=== PATIENT | female | born 1950 | race Caucasian/White ===

== ENCOUNTER 2023-07-05 06:11 | Outpatient (REF) | payer MEDICARE, SELFPAY | END 2023-07-05 06:12 | disposition home or self-care (01) | LOC: HO.MMNH1L 06:11 | PROVIDERS: Visit Provider Family Medicine | DX: Z13.89 Encounter for screening for other disorder (principal) ==

== ENCOUNTER 2023-07-25 16:49 | Outpatient (REF) | payer SELFPAY ==
[2023-07-25 18:27] LABS: CDiff Gene PCR NEGATIVE (Negative)
== END 2023-07-25 16:50 | disposition home or self-care (01) ==
LOC: HO.MMNH1L 16:49
PROVIDERS: Visit Provider Family Medicine
DX: N39.0 Urinary tract infection, site not specified (principal); M62.59 Muscle wasting and atrophy, not elsewhere classified, multiple sites; L89.154 Pressure ulcer of sacral region, stage 4
CPT/HCPCS: 87493

== ENCOUNTER 2023-09-14 06:08 | Outpatient (REF) | payer MEDICARE, OTHER, SELFPAY ==
[2023-09-14 06:11] LABS: MANUAL DIFF FLAG NO
[2023-09-14 06:20] LABS: Basophils Absolute Auto 0.1 X10*3/uL (0.0-0.2); Basophils Percent Auto 0.7 % (0-2); Eosinophils Absolute Auto 0.2 X10*3/uL (0.0-0.4); Eosinophils Percent Auto 2.8 % (0-4); Hemoglobin 11.9 g/dl (12.0-16.0); Imm Gran Abs Auto 0.04 X10*3/uL (0.00-0.03); Imm Gran Pct Auto 0.5 % (0.0-0.4); Lymphocytes Absolute Auto 2.1 X10*3/uL (1.2-4.9); Lymphocytes Percent Auto 28.2 % (20-40); Mean Corpuscular HGB Conc 32.2 g/dl (31.0-35.0); Mean Corpuscular Hemoglobin 28.2 pg (27.0-33.0); Mean Corpuscular Volume 87.7 fL (80.0-98.0); Mean Platelet Volume 9.1 fL (9.4-12.3); Monocytes Absolute Auto 0.6 X10*3/uL (0.1-1.2); Monocytes Percent Auto 8.6 % (2-11); Neutrophils Absolute Auto 4.4 x10*3/uL (2.0-8.3); Neutrophils Percent Auto 59.2 % (45-73); Platelet Count 505 X10*3/uL (160-400); Red Blood Count 4.22 X10*6/uL (4.20-5.50); Red Cell Distribution Width 16.9 % (11.0-16.0); White Blood Count 7.4 X10*3/uL (4.8-10.8)
[2023-09-14 07:26] LABS: Blood Urea Nitrogen 35 mg/dL (9-16); Estimated Glomerular Filt Rate 25
[2023-09-14 07:38] LABS: Anion Gap 19 (12-20)
[2023-09-14 07:39] LABS: Calcium 10.3 mg/dL (8.4-10.2); Carbon Dioxide 20 mmol/L (22-29); Chloride 103 mmol/L (96-108)
[2023-09-14 07:40] LABS: Sodium 136 mmol/L (135-145)
[2023-09-14 08:10] LABS: Estimated Average Glucose 100 mg/dL; Hemoglobin A1c % 5.1 % (<6.0)
[2023-09-14 08:12] LABS: Glucose Random 53 mg/dL (60-115); Potassium 6.3 mmol/L (3.3-5.1)
== END 2023-09-14 06:09 | disposition home or self-care (01) ==
LOC: HO.MMNH1L 06:08
PROVIDERS: Hospitalist; Visit Provider Family Medicine
DX: L89.154 Pressure ulcer of sacral region, stage 4 (principal); G93.41 Metabolic encephalopathy
CPT/HCPCS: 36415; 80048; 83036; 85025

== ENCOUNTER 2023-09-15 05:05 | Outpatient (REF) | payer MEDICARE, OTHER, SELFPAY ==
[2023-09-15 05:07] LABS: MANUAL DIFF FLAG NO
[2023-09-15 05:14] LABS: Basophils Percent Auto 0.5 % (0-2); Eosinophils Absolute Auto 0.2 X10*3/uL (0.0-0.4); Eosinophils Percent Auto 2.6 % (0-4); Imm Gran Abs Auto 0.05 X10*3/uL (0.00-0.03); Imm Gran Pct Auto 0.6 % (0.0-0.4); Lymphocytes Absolute Auto 1.8 X10*3/uL (1.2-4.9); Lymphocytes Percent Auto 20.8 % (20-40); Mean Corpuscular HGB Conc 33.3 g/dl (31.0-35.0); Mean Corpuscular Hemoglobin 28.9 pg (27.0-33.0); Mean Corpuscular Volume 86.8 fL (80.0-98.0); Monocytes Absolute Auto 0.8 X10*3/uL (0.1-1.2); Monocytes Percent Auto 8.8 % (2-11); Neutrophils Absolute Auto 5.7 x10*3/uL (2.0-8.3); Neutrophils Percent Auto 66.7 % (45-73); Platelet Count 384 X10*3/uL (160-400); Red Cell Distribution Width 16.4 % (11.0-16.0); White Blood Count 8.5 X10*3/uL (4.8-10.8)
[2023-09-15 05:27] LABS: Alanine Aminotransferase 9 U/L (0-31); Albumin Level 3.2 g/dL (3.5-5.0); Alkaline Phosphatase 88 U/L (39-117); Anion Gap 17 (12-20); Aspartate Amino Transferase 17 U/L (5-31); Bilirubin Total 0.1 mg/dL (0.0-1.0); Blood Urea Nitrogen 36 mg/dL (9-16); Calcium 9.4 mg/dL (8.4-10.2); Carbon Dioxide 17 mmol/L (22-29); Chloride 101 mmol/L (96-108); Estimated Glomerular Filt Rate 30; Glucose Random 72 mg/dL (60-115); Potassium 4.4 mmol/L (3.3-5.1); Sodium 131 mmol/L (135-145); Total Protein 5.9 g/dL (6.5-8.0)
== END 2023-09-15 05:06 | disposition home or self-care (01) ==
LOC: HO.MMNH1L 05:05
PROVIDERS: Visit Provider Hospitalist
DX: L89.154 Pressure ulcer of sacral region, stage 4 (principal); G93.41 Metabolic encephalopathy; N17.9 Acute kidney failure, unspecified
CPT/HCPCS: 36415; 80053; 85025

== ENCOUNTER 2023-09-25 16:27 | Outpatient (REF) | payer MEDICARE, OTHER, SELFPAY ==
[2023-09-25 16:57] LABS: Alanine Aminotransferase 105 U/L (0-31); Albumin Level 3.1 g/dL (3.5-5.0); Alkaline Phosphatase 477 U/L (39-117); Anion Gap 12 (12-20); Aspartate Amino Transferase 172 U/L (5-31); Bilirubin Total 0.2 mg/dL (0.0-1.0); Blood Urea Nitrogen 15 mg/dL (9-16); Calcium 9.2 mg/dL (8.4-10.2); Carbon Dioxide 24 mmol/L (22-29); Chloride 105 mmol/L (96-108); Estimated Glomerular Filt Rate > 60; Glucose Random 151 mg/dL (60-115); Potassium 4.2 mmol/L (3.3-5.1); Sodium 137 mmol/L (135-145); Total Protein 5.8 g/dL (6.5-8.0)
== END 2023-09-25 16:28 | disposition home or self-care (01) ==
LOC: HO.MMNH1L 16:27
PROVIDERS: Visit Provider Hospitalist
DX: G93.41 Metabolic encephalopathy (principal); N18.30 Chronic kidney disease, stage 3 unspecified; N17.9 Acute kidney failure, unspecified
CPT/HCPCS: 36415; 80053

== ENCOUNTER 2024-07-09 05:36 | Outpatient (REF) | payer MEDICARE, OTHER, SELFPAY ==
--- OUTSIDE RECORDS SUMMARY | 2024-07-09 05:38 | XMS_ITS | Clinical Summary ---
Author Organization [facility] Address [address] [place] [address] Care Team Providers Care Redipper Name Role Phone Mao Arreguin III Primary Care Provider [phone] Allergies Active Allergy Reactions Criticality Noted Date Comments Penicillins Hives 05/01/2023 Medications losartan (COZAAR) 25 mg tablet Take 25 mg by mouth once a day. Active zolpidem (AMBIEN) 10 mg tablet Take 10 mg by mouth nightly as needed for sleep. Active Active Problems Problem Noted Date Diagnosed Date Weakness 05/02/2023 Social History Tobacco Use Types Packs/Day Years Used Date Smoking Tobacco: Former Cigarettes Passive Smoke Exposure: Past Tobacco Cessation:Counseling Given: Not Answered Alcohol Use Standard Drinks/Week Comments Never 0 (1 standard drink = 0.6 oz pur e alcohol) Comments No Sex and Gender Information Value Date Recorded Sex Assigned at Female 05/01/2023 8:42 PM EST Legal Sex Female 8:59 AM EDT Gender Identity Not on file Sexual Orientation Not on file Last Filed Vital Signs Vital Sign Reading Time Taken Comments Blood Pressure 111/73 05/02/2023 9:44 AM EST Pulse 99 05/02/2023 9:44 AM EST Temperature 36.7 ??C (98.1 ??F) 05/01/2023 7:38 PM ES T Respiratory Rate 18 05/02/2023 9:44 AM EST Oxygen Saturation 94% 05/02/2023 9:44 AM EST Inhaled Oxygen Concentration - - Weight 72.6 kg (160 lb) 05/01/2023 7:38 PM EST Height 160 cm (5' 3 ) 05/01/2023 7:38 PM EST Body Mass Index 28.34 05/01/2023 7:38 PM EST Plan of Treatment Health Maintenance Due Date Last Done Comments Angie 1950 Colon Cancer Screening 1950 Colonoscopy 1950 FOBT / Fit Test 1950 Hepatitis C Screening 1950 Sigmoidoscopy 1950 Medicare AWV 1951 DTaP,Tdap,and Td Vaccines (1 - Tdap) 11/17/[address] Lung Cancer Screening (Baseline) 11/17/1999 Osteoporosis Screening 11/17/1999 Pneumococcal Vaccine: 50+ Ye ars (1 of 1 - PCV) 11/17/1999 Zoster Vaccines (1 of 2) 11/17/1999 COVID-19 Vaccine (1 - 2023-2 5 season) 2023 Alcohol/Substance Use Screening 02/27/2024 Depression Screening and Follow-Up 02/27/2024 Health Care Proxy Review 02/27/2024 Social Drivers of Health Lisa ual Screening 02/27/2024 Influenza Vaccine (Season Ended) 2024 RSV Vaccine (60+ years old a nd patients) (1 - 1-dose 75+ series) 2024 Hepatitis B Vaccines Aged Out No long er eligible based on patient's age to complete this topic Insurance MEDICARE [facility] [place] [id number] Care Teams Redipper Relationship Specialty Start Date End Date Mao Arreguin III [address] [facility] [address] [place], [place] [id number] PCP - General Family Medicine 05/02/23
--- OUTSIDE RECORDS SUMMARY | 2024-07-09 05:38 | XMS_ITS | Referral Summary ---
Author Organization [facility] Address [address] [place] [address] Care Team Providers Care Gut Sorter Name Role Phone Mao Arreguin III Primary Care Provider [phone] Allergies Active Allergy Reactions Criticality Noted Date [...] 05/01/2023 7:38 PM EST Plan of Treatment Not on file Insurance MEDICARE [facility] Care Teams Gut Sorter Relationship Specialty Start Date End Date Mao Arreguin III [address] [place] [address] [address] [place], [place] [phone] PCP - General Family Medicine 05/02/23
[2024-07-09 06:42] LABS: Anion Gap 15 (12-20); Blood Urea Nitrogen 17 mg/dL (9-16); Calcium 9.2 mg/dL (8.4-10.2); Carbon Dioxide 27 mmol/L (22-29); Chloride 104 mmol/L (96-108); Estimated Glomerular Filt Rate > 60; Glucose Random 138 mg/dL (60-115); Potassium 4.6 mmol/L (3.3-5.1); Sodium 141 mmol/L (135-145)
== END 2024-07-09 05:37 | disposition home or self-care (01) ==
LOC: HO.MMNH3L 05:36
PROVIDERS: Visit Provider Student in an Organized Health Care Education/Training Program
DX: I10 Essential (primary) hypertension (principal)
CPT/HCPCS: 36415; 80048

== ENCOUNTER 2024-09-01 06:47 | Outpatient (REF) | payer MEDICARE, OTHER, SELFPAY ==
[2024-09-01 06:53] LABS: MANUAL DIFF FLAG NO
[2024-09-01 07:10] LABS: Hematocrit 38.4 % (37.0-47.0); Hemoglobin 12.9 g/dl (12.0-16.0); Imm Gran Abs Auto 0.02 X10*3/uL (0.00-0.03); Imm Gran Pct Auto 0.2 % (0.0-0.4); Lymphocytes Absolute Auto 2.8 X10*3/uL (1.2-4.9); Mean Corpuscular HGB Conc 33.6 g/dl (31.0-35.0); Mean Corpuscular Hemoglobin 30.6 pg (27.0-33.0); Mean Corpuscular Volume 91.0 fL (80.0-98.0); NRBC Abs Auto 0.000 X10*3/uL (0.0-0.012); NRBC Pct Auto 0.0 /100WBC (0.0-0.2); Platelet Count 300 X10*3/uL (160-400); Red Blood Count 4.22 X10*6/uL (4.20-5.50); White Blood Count 8.3 X10*3/uL (4.8-10.8)
[2024-09-01 07:21] LABS: B Type Natriuretic Peptide 19 pg/mL (<100)
[2024-09-01 07:25] LABS: Alanine Aminotransferase 18 U/L (0-31); Albumin Level 3.8 g/dL (3.5-5.0); Alkaline Phosphatase 110 U/L (39-117); Anion Gap 14 (12-20); Aspartate Amino Transferase 28 U/L (5-31); Blood Urea Nitrogen 20 mg/dL (9-16); Calcium 9.5 mg/dL (8.4-10.2); Carbon Dioxide 28 mmol/L (22-29); Chloride 107 mmol/L (96-108); Estimated Glomerular Filt Rate > 60; Potassium 4.6 mmol/L (3.3-5.1); Sodium 144 mmol/L (135-145); Total Protein 6.5 g/dL (6.5-8.0)
[2024-09-01 07:34] LABS: Hemoglobin A1C 155.3810 umol/L; Total Hemoglobin (HGBA1C) 3412.2374 umol/L
[2024-09-01 07:37] LABS: Thyroid Stimulating Hormone 2.07 uIU/mL (0.32-4.0)
== END 2024-09-01 06:48 | disposition home or self-care (01) ==
LOC: HO.MMNH3L 06:47
PROVIDERS: Visit Provider Student in an Organized Health Care Education/Training Program
DX: E11.22 Type 2 diabetes mellitus with diabetic chronic kidney disease (principal); I13.0 Hypertensive heart and chronic kidney disease with heart failure and stage 1 through stage 4 chronic kidney disease, or unspecified chronic kidney disease; N18.30 Chronic kidney disease, stage 3 unspecified; I50.30 Unspecified diastolic (congestive) heart failure; E11.51 Type 2 diabetes mellitus with diabetic peripheral angiopathy without gangrene
CPT/HCPCS: 36415; 80053; 83036; 83880; 84443; 85025

== ENCOUNTER 2025-02-24 15:47 | Outpatient (REF) | payer MEDICARE, OTHER, SELFPAY ==
--- OUTSIDE RECORDS SUMMARY | 2025-02-24 18:56 | XMS_ITS | Clinical Summary ---
Author Organization [facility] Address [address] [place] [address] Care Team Providers Care Core Java Software Engineer Name Role Phone Rodríguez MORALES MD, Mao Hu Primary Care Pro vider Allergies Active Allergy Reactions Criticality Noted Date Comments Penicillins Anaphylaxis High 06/05/2015 Medications modafinil (PROVIGIL) 200 MG tablet 5 03/05/2015 Active phentermine 30 MG capsule 2 05/18/2015 Active CRESTOR 10 mg tablet 5 05/24/2015 Active zolpidem (AMBIEN) 10 mg tablet 06/04/2015 Active GLUCOPHAGE 1,000 mg tablet 5 05/23/2015 Active COZAAR 50 mg tablet 5 05/31/2015 Active Social History Tobacco Use Types Packs/Day Years Used Date Smoking Tobacco: Former Comments No Sex and Gender Information Value Date Recorded Sex Assigned at Not on file Legal Sex Female 9:40 AM EDT Gender Identity Not on file Sexual Orientation Not on file Last Filed Vital Signs Vital Sign Reading Time Taken Comments Blood Pressure 122/74 06/05/2015 9:53 AM EDT Pulse 88 06/05/2015 9:53 AM EDT Temperature 36.3 C (97.3 F) 06/05/2015 9:53 AM EDT Respiratory Rate 18 06/05/2015 9:53 AM EDT Oxygen Saturation 97% 06/05/2015 9:53 AM EDT Inhaled Oxygen Concentration - - Weight 90.7 kg (200 lb) 06/05/2015 9:53 AM EDT Height 162.6 cm (5' 4 ) 06/05/2015 9:53 AM EDT Body Mass Index 34.33 06/05/2015 9:53 AM EDT Plan of Treatment Not on file Medical Devices Not on file Insurance MEDICARE [facility] Care Teams Core Java Software Engineer Relationship Specialty Start Date End Date Mao Arreguin III, MD [facility] [address] [place] [phone] PCP - General Family Medicine 06/05/15
--- OUTSIDE RECORDS SUMMARY | 2025-02-24 18:56 | XMS_ITS | Data Portability ---
Author Organization [facility], Main Office Address [address] [address] [address] [place] [address] Care Team Providers Care Stations Superintendent Name Role Phone MALACHI JIMENEZ Primary Care Provider [phone] DANNY KEVIN 1ST FLOOR OTHER [phone] Assessment Encounter Date Assessment Date Assessment LastModified by Organization Details LastModified Time 08/13/2023 08/13/2023 Labs 07/03: Na 137-K 4.6-Bun 13- Cr 0.7 - Labs 07/02: wbc 11.6-hgb 10.0-hct 32.3-plt 560 Labs 07/15: refusing blood draws. Labs 07/23: Na 136-K 4.3-Bun 13- Cr 0.7- wbc 9.3- hgb 9.7-hct 30.8-plt 470 Not available 08/13/2023 13:51:58 08/16/2023 08/16/2023 Labs 07/03: Na 137-K 4.6-Bun 13- Cr 0.7 - Labs 07/02: wbc 11.6-hgb 10.0-hct 32.3-plt 560 Labs 07/15: refusing blood draws. Labs 07/23: Na 136-K 4.3-Bun 13- Cr 0.7- wbc 9.3- hgb 9.7-hct 30.8-plt 470 Not available 08/16/2023 11:22:23 08/20/2023 08/20/2023 Labs 07/03: Na 137-K 4.6-Bun 13- Cr 0.7 - Labs 07/02: wbc 11.6-hgb 10.0-hct 32.3-plt 560 Labs 07/15: refusing blood draws. Labs 07/23: Na 136-K 4.3-Bun 13- Cr 0.7- wbc 9.3- hgb 9.7-hct 30.8-plt 470 Spent 30 reviewing records, seeing pt, consulting with staff and documenting [place] Not available 09/15/2023 18:50:16 08/28/2023 08/28/2023 Labs 07/03: Na 137-K 4.6-Bun 13- Cr 0.7 - Labs 07/02: wbc 11.6-hgb 10.0-hct 32.3-plt 560 Labs 07/15: refusing blood draws. Labs 07/23: Na 136-K 4.3-Bun 13- Cr 0.7- wbc 9.3- hgb 9.7-hct 30.8-plt 470 Not available 08/28/2023 12:55:15 09/03/2023 09/03/2023 Labs 07/03: Na 137-K 4.6-Bun 13- Cr 0.7 - Labs 07/02: wbc 11.6-hgb 10.0-hct 32.3-plt 560 Labs 07/15: refusing blood draws. Labs 07/23: Na 136-K 4.3-Bun 13- Cr 0.7- wbc 9.3- hgb 9.7-hct 30.8-plt 470 Labs 07/03: Na 137-K 4.6-Bun 13- Cr 0.7 - Labs 07/02: wbc 11.6-hgb 10.0-hct 32.3-plt 560 Labs 07/15: refusing blood draws. Labs 07/23: Na 136-K 4.3-Bun 13- Cr 0.7- wbc 9.3- hgb 9.7-hct 30.8-plt 470 Spent 30 reviewing records, seeing pt, consulting with staff and documenting [place] Not available 09/03/2023 21:37:47 Plan of Treatment Reminders Order Date Submit Date Provider Last Modified By Organization Details Last Modified Time Details Appointments None record ed. Lab None record ed. Referral None record ed. Procedures None record ed. Surgeries None record ed. Imaging None record ed. Medication Orders None record ed. Patient TargetsNo targets recorded. Patient InstructionsNo instructions recorded. Reason for Referral None Reported. Problems Name Problem SNOMED Code Status Onset Date Resolution Date Notes Provider Name and Address Organization Details Recorded Time Essential hypertensi on 56241057 Active 2022 DHEERAJ VELAZQUEZ, KWAKU [address], [address], [place], [address], [facility] 3 14:35:55 Type 2 diabetes mellitus 44183984 Active 2022 DHEERAJ VELAZQUEZ, KWAKU [address], [address], [place], [address], [facility] 3 14:36:04 Colitis 35107605 Completed 202207/06/2023 [address]RY [address], [address], [place], [address], [facility] 4 11:15:26 Major depressive disorder 247820461 Active 2022 DHEERAJ VELAZQUEZ NP [address], [address], [place], [address], [facility] 3 14:36:36 Self-negle ct 361870835 Active 2022 DHEERAJ VELAZQUEZ NP [address], [address], [place], [address], [facility] 3 14:36:46 Asthenia 56226192 Active 2022 DHEERAJ VELAZQUEZ NP [address], [address], [place], [address], [facility] 3 14:37:05 Infection by methicilli n sensitive Staphyloco ccus aureus 081751994 Completed 202207/06/[address] GUIDRY [address], [address], [place], [address], [facility] 4 11:15:26 Urinary tract infectious disease 74167355 Active 2023 [address] GUIDRY [address], [address], [place], [address], [facility] 4 11:16:44 Pressure injury 8167249306 Active 2023 [address] GUIDRY [address], [address], [place], [address], [facility] 4 11:17:17 Ulcer 029283494 Active 2023 FRANTZ GUIDRY [address] [facility], [address], [place], [address], [facility] 4 11:17:33 Insomnia 926004674 Active 2023 FRANTZ GUIDRY [address] [facility], [address], [place], [address], [facility] 4 11:23:33 Gastroesop hageal reflux disease 681688107 Active 2023 FRANTZ GUIDRY [address] [place] [address], [address], [place], [address], [facility] 4 11:26:34 Peripheral vascular disease 278187480 Active 2023 FRANTZ GUIDRY [address] [place] [address], [address], [place], [address], [facility] 4 11:39:18 Diabetic foot ulcer 379883805 Active 2023 Katt Fernando MD [address] [place] [address], [facility] [place] [address], [place], [address], [facility] 4 21:45:55 Problem Notes None recorded. Medical Equipment None Reported. Allergies Allergen ID Allergen Name Allergen Category Reaction Reaction Severity Criticality Documentation Date Start Date Code Code System Note Provider Name and Address Organization Details Recorded Time 51440 Product containin g penicilli n (product) medicatio n Not available Not available Not available 07/08/2022 78410 8001 SNOMED DHEERAJ VELAZQUEZ NP [address] [facility], [address], [place], [address], [facility] 3 14:26:05 95015 ceftriaxo ne medicatio n Not available Not available Not available 07/06/2023 2193 RxNorm FRANTZ GUIDRY [address] [facility], [address], [place], [address], [facility] 4 11:44:51 Medications Name Sig Start Date Stop Date Status Note LastModified by Organization Details LastModified Time zolpidem 5 mg tablet Take 1 tablet every day by oral route as needed. 023 active Not Available Not Available Not Avai lable oxycodone 5 mg tablet Take 1 tablet every 6 hours by oral route as needed, for pain. 024 active Not Available Not Available Not Avai lable Vitals Date Recorded Body height Body temperature Respiratory rate Heart rate Systolic And Diastolic Provider Name and Address Organization Details Last Updated DateTime 4 160.02 cm 97.4 [degF] 18 /min 92 /min 102/60 mm[Hg] FRANTZ GUIDRY [address] [facility], [address], [place], [address], [facility] 4 13:47:40 Date Recorded Body height Heart rate Respiratory rate Body temperature Oxygen saturation Systolic And Diastolic Provider Name and Address Organization Details Last Updated DateTime 4 160.02 cm 76 /min 18 /min 98 [degF] 94 % 110/62 mm[Hg] FRANTZ GUIDRY [address] [place] [address], [address], [place], [address], [facility] 4 11:21:58 Date Recorded Body height Body mass index (BMI) Body weight Heart rate Respiratory rate Body temperature Oxygen saturation Systolic And Diastolic Provider Name and Address Organization Details Last Updated DateTime 4 160.02 cm 26.7 kg/m2 11445.7 3 g 69 /min 18 /min 98 [degF] 95 % 108/76 mm[Hg] Katt Fernando MD [address] [facility], [address], [place], [address], [facility] 4 21:46:18 Date Recorded Body height Body temperature Oxygen saturation Respiratory rate Heart rate Systolic And Diastolic Provider Name and Address Organization Details Last Updated DateTime 4 160.02 cm 97.9 [degF] 93 % 18 /min 74 /min 100/58 mm[Hg] FRANTZ GUIDRY [address] [facility], [address], [place], [address], [facility] 4 12:52:55 Date Recorded Body height Body mass index (BMI) Body weight Heart rate Respiratory rate Body temperature Oxygen saturation Systolic And Diastolic Provider Name and Address Organization Details Last Updated DateTime 160.02 cm 26.5 kg/m2 40229.7 g 88 /min 16 /min 97.8 [degF] 98 % 106/69 mm[Hg] Katt Fernando MD [address] [facility], [address], [place], [address], [facility] 18:37:38 Social History Question Answer Notes LastModified by [employer] Details LastModified Time Tobacco Smoking Status Former Smoker quit 2003 Katt Fernando MD [address] [facility], [address], [place], [address], [facility] 07/09/2023 21:46:25 Do You Have An Advance Directive? Yes Information not available 07/06/2023 What Is Your Code Status? Full Code Information not available 07/06/2023 [facility] [place] Information not available 09/03/2023 Legal Guardian? No Informati on not available 07/09/2023 Do You Have A Medical Power Of Director Of Occupational Therapy? Yes Information not available 07/09/2023 What Was The Date Of Your Most Recent Tobacco Screening? 07/09/2023 Information not available 07/09/2023 Do You Have An Out Of Hospital DNR? No Information not available 07/06/2023 What Is Your Relationship Status? Of Heart Failure A Few Yrs Ago, He Smoked, Drank And At One Time Was Addicted To Oxy. Information not available 09/03/2023 How Much Tobacco Do You Smoke? No Information not available 07/09/2023 Has Tobacco Cessation Counseling Been Provided? No N/a As Pt No Longer Smokes Information not available 07/09/2023 Sex: Unknown Functional Status Question Answer Note LastModified by [employer] Details LastModified Time Do you use any illicit or recreational drugs? No Information not available 07/09/2023 What is your level of alcohol consumption? None [email or web address] Information not available 07/08/2022 Mental Status None recorded. Family History Nothing Reported Notes:mother-dementia Medical History No medical history recorded. Gynecological HistoryNo gynecological history recorded. Obstetrics History GPAL:G 0 P 0 0 0 0 Past Encounters Encounter ID Performer Location Encounter Start Date Encounter Closed Date Diagnosis/Indication Diagnosis SNOMED-CT Code Diagnosis ICD10 Code Diagnosis IMO Codes Diagnosis Note [id number] DHEERAJ VELAZQUEZ NP [facility] [address] 07/08/2022 12:41:08 07/10/2022 15:17:56 Colitis 03088372 K52.9 protonix 40mg bidthiamin e 100 mg dailymvi dailymiral ax prn dailycolac e/senna bid prn Self-neglect 501326471 R 46.89 SW consultpsy ch consult Essential hypertension 44192682 I10 losartan 50mg daily Major depr essive disorder 433762469 F32.9 no medspsych consult Type 2 mary betes mellitus 77357912 E11.9 lispro sliding scale ac/hsglarg ine 28 units breakfastm onitor glucose Asthenia 02576256 R53.1 PT OT eval and treatfall precaution sfrequent safety checks [id number] Desiree Jo MD [address] [address] 07/12/2022 05:53:35 07/16/2022 08:38:59 Asthenia 81061051 R53.1 PT/OTwill monitor Essential hypertension 03281458 I10 losartan 50 mg dailywill monitor Type 2 mary betes mellitus 71486498 E11.9 Lantus 28U dailyLispr o per sliding scalewill monitor History of osteomyelitis 673905963 Z87.39 history MSSA bacteremia and right great toe osteomyeli tis:comple te Kefzol 06/28/22dox ycycline 100 mg bid through 07/30/22fu I.D.will monitor [id number] FRANTZ Fernando [address] [address] 07/18/2022 09:14:57 07/27/2022 15:07:17 Colitis 14143664 K52.9 stableprot vanessa 40mg bidthiamin e 100 mg dailymvi dailymiral ax prn dailycolac e/senna bid prn Self-neglect 936594652 R 46.89 SW consultpsy ch consult Essential hypertension 60699778 I10 bp normallosa rtan 50mg qdmonitor bp and adjust med prn Major depr essive disorder 118130394 F32.9 pt had been started on lexapro and depakote at previous hospital stay, not on either at this timepsych consult Type 2 mary betes mellitus 05282031 E11.9 BS 100-200sli spro sliding scale ac/hsglarg ine 28 units q ammonitor BS and adjust insulin prn Asthenia 01451318 R53.1 continue PT OTfall precaution sfrequent safety checks History of osteomyelitis 773535590 Z87.39 history MSSA bacteremia and right great toe osteomyeli tis:comple jensen Kefzol 06/28/22dox ycycline 100 mg bid til 07/28/22prob iotic bid til 23f/u I.Dmonitor right great toeencoura ged pt to stay till her house is fixed up so she can return there [id number] FRANTZ Fernando [address] [address] 07/25/2022 09:31:26 07/28/2022 10:53:58 History of osteomyelitis 785494638 Z87.39 history MSSA bacteremia and right great toe osteomyeli tis:comple jensen Kefzol 06/28/22dox ycycline 100 mg bid til 07/28/22prob iotic bid til 08/02/22f/u I.Dmonitor right great toe Colitis 09491205 K52.9 stableprot vanessa 40mg bidthiamin e 100 mg dailymvi dailymiral ax prn dailycolac e/senna bid prn Essential hypertension 95061564 I10 losartan 50mg qdmonitor bp and adjust med prn Major depr essive disorder 973007633 F32.9 mood stablept had been started on lexapro and depakote at previous hospital stay, not on either at this timepsych consult Type 2 mary betes mellitus 68520514 E11.9 BS 100s with occ 200slispro sliding scale ac/hsglarg ine 28 units q ammonitor BS and adjust insulin prn [id number] TIFFANIE FRANCO, PRODUCTION TECHNICIAN [facility] [address] 07/27/2022 11:33:08 08/18/2022 11:31:19 History of osteomyelitis 890628913 Z87.39 history MSSA bacteremia and right great toe osteomyeli tis:comple jensen Kefzol 06/28/22dox ycycline 100 mg bid til 07/28/22prob iotic bid til 08/02/22f/u I.Dmonitor right great toe Colitis 19729200 K52.9 stableprot vanessa 40mg bidthiamin e 100 mg dailymvi dailymiral ax prn dailycolac e/senna bid prn Essential hypertension 92311497 I10 BP 140/70losa rtan 50mg qdmonitor bp and adjust med prn Major depr essive disorder 033420889 F32.9 Not currently on any mood stabilizer sno behavior concernsmo nitor for mood and behavorial changespsy ch consult as needed Type 2 mary betes mellitus 49138594 E11.9 07/26 305lispro sliding scale ac/hsglarg ine 28 units q ammonitor BS and adjust insulin prnmonitor for sx of hypo/hyper glycemia. [id number] FRANTZ Fernando [facility] [address] 08/01/2022 10:14:59 08/04/2022 14:14:07 History of osteomyelitis 579113649 Z87.39 history MSSA bacteremia and right great toe osteomyeli tis:comple jensen Kefzol 06/28/22 and doxycyclin e on 07/28/22prob iotic bid til 08/02/22f/u I.Dmonitor right great toe Colitis 92360753 K52.9 stable, no c/o sxsprotoni x 40mg qd (was on bid till 07/29/22)thi amine 100 mg qdmvi qdcolace/s karena bid prnmonitor for sxs Essential hypertension 82181404 I10 bp normallosa rtan 50mg qdmonitor bp and adjust med prn Major depr essive disorder 000647493 F32.9 mood stableno treatmentp sych consult Type 2 mary betes mellitus 62718521 E11.9 BS 100s -200spt doesn't want to change glargine doselispro sliding scale ac/hsglarg ine 28 units q ammonitor BS and adjust insulin prn Primary insomnia 7020501 F51.01 trial ambien 5 mg 1 qhs prn insomniamo nitor for effect Osteoarthritis 025901731 M19.90 ibuprofen 400 mg q 6 hrs prn painmonito r for effect [id number] FRANTZ GUIDRY [facility] [address] [address] 08/02/2022 12:36:34 08/04/2022 15:30:14 Floaters in visual field 605474988 H43.399 hx of floater, has been taking leutin periodical ly when floater appear which works 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 [id number] FRANTZ GUIDRY [facility] [address] [address] 08/07/2022 13:53:28 08/10/2022 16:12:09 History of osteomyelitis 259974644 Z87.39 history MSSA bacteremia and right great toe osteomyeli tis:comple jensen Kefzol 06/28/22 and doxycyclin e on 07/28/22prob iotic bid til 08/02/22f/u I.Dmonitor right great toe Colitis 91912747 K52.9 08/07: no reported sxstable, no c/o sxsprotoni x 40mg qd (was on bid till 07/29/22)thi amine 100 mg qdmvi qdcolace/s karena bid prnmonitor for sxs Essential hypertension 51326284 I10 122/76losa rtan 50mg qdmonitor for clinical sx changesmon itor bp and adjust med prn Major depr essive disorder 431693885 F32.9 no currently taking medication smonitor for mood and behaviroal changespsy ch consult Type 2 mary betes mellitus 70542981 E11.9 BS 100s -200spt doesn't want to change glargine doselispro sliding scale ac/hsglarg ine 28 units q ammonitor BS and adjust insulin prn Primary insomnia 8757726 F51.01 sleeping wellambien 5 mg 1 qhs prn insomnia until 08/15 and re eval Osteoarthritis 616202225 M19.90 ibuprofen 400 mg q 6 hrs prn painmonito r for effect Floaters i n visual field 589694026 H43.399 no reported sx todayhx of floater, has been taking leutin periodical ly when floater appear which works 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 [id number] CASEY SEYMOUR NP [facility] [address] [place] [address] 08/09/2022 15:36:34 08/11/2022 08:59:37 History of osteomyelitis 371654826 Z87.39 history MSSA bacteremia and right great toe osteomyeli tis:comple jensen Kefzol 06/28/22 and doxycyclin e on 07/28/22prob iotic bid til 08/02/22f/u I.D - sched. for 07/18 - unsure if pt. went to this appt. Will request paperwork, if did not go will reschedule appt.monit or right great toe Colitis 62702196 K52.9 No GI issuesstab le, no c/o sxsprotoni x now 40mg qd, reduced from bid 07/29 - melissa. dose reduction well so far.colace /senna bid prnmonitor for sxs Essential hypertension 28617577 I10 VSScontinu e losartan 50mg qdmonitor for clinical sx changesmon itor bp and adjust med prn Major depr essive disorder 759396893 F32.9 no currently taking medication smonitor for mood and behaviroal changespsy ch consult Type 2 mary betes mellitus 18183027 E11.9 BS 100s -200spt doesn't want to change glargine dose - continue 28 units q amlispro sliding scale ac/hsmonit or BS and adjust insulin prn Primary insomnia 5224045 F51.01 sleeping wellambien 5 mg 1 qhs prn insomnia until 08/15 and re eval Osteoarthritis 594172415 M19.90 ibuprofen 400 mg q 6 hrs prn painmonito r for effect Floaters i n visual field 460713530 H43.399 no reported sx todayhx of floaters, has been taking leutin periodical ly when floater appear which works for her - ordered daily for 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 [id number] CASEY SEYMOUR NP [address] [address] 08/14/2022 14:18:48 08/16/2022 08:16:11 History of osteomyelitis 698728588 Z87.39 history MSSA bacteremia and right great toe osteomyeli tis:comple jensen Kefzol 06/28/22 and doxycyclin e on 07/28/22prob iotic bid til 08/02/22f/u I.D - sched. for 07/18 - unsure if pt. went to this appt. Requested paperwork, if did not go will reschedule appt.monit or right great toe Colitis 22528296 K52.9 No GI issuesstab le, no c/o sxsprotoni x now 40mg qd, reduced from bid 07/29 - melissa. dose reduction well so far.colace /senna bid prnmonitor for sxs Essential hypertension 31758312 I10 VSScontinu e losartan 50mg qdmonitor for clinical sx changesmon itor bp and adjust med prn Major depr essive disorder 963006004 F32.9 not currently taking medication smonitor for mood and behavioral changespsy ch consult Type 2 mary betes mellitus 44136572 E11.9 BS 100s -200spt doesn't want to change glargine dose - continue 28 units q amlispro sliding scale ac/hsmonit or BS and adjust insulin prn Primary insomnia 8586977 F51.01 sleeping wellambien 5 mg 1 qhs prn insomnia - will continue until discharge home. 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 [id number] CASEY SEYMOUR NP [facility] [address] 08/17/2022 11:49:50 08/23/2022 08:42:03 History of osteomyelitis 852904675 Z87.39 history MSSA bacteremia and right great toe osteomyeli tis:comple jensen Kefzol 06/28/22 and doxycyclin e on 07/28/22prob iotic bid til 08/02/22f/u I.D - sched. for 07/18 - unsure if pt. went to this appt. Requested paperwork, if did not go will need to reschedule appt.monit or right great toe as outpt. Colitis 26419192 K52.9 No GI issuesstab le, no c/o sxsprotoni x now 40mg qd, reduced from bid 07/29 - melissa. dose reduction well so far.colace /senna bid prnmonitor for sxs Essential hypertension 56507532 I10 VSScontinu e losartan 50mg qdmonitor for clinical sx changesmon itor bp and adjust med prn Major depr essive disorder 284990608 F32.9 not currently taking medication smonitor for mood and behavioral changespsy ch consult Type 2 mary betes mellitus 60942857 E11.9 BS 100s -200spt doesn't want to change glargine dose - continue 28 units q amlispro sliding scale ac/hsmonit or BS and adjust insulin prn Primary insomnia 0273036 F51.01 sleeping wellambien 5 mg 1 qhs prn insomnia - stopping upon d/c home. 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 [id number] FRANTZ GUIDRY [address] [place] [address] rd LAYA GARCIA [address] 07/05/2023 09:49:16 07/09/2023 14:57:05 Pressure injury 1675202799 L89.90 decubitus ulcer on sacrum unstageabl eContinue on Bactrim which was restarted on 06/30 and should be continued until 07/05contin ue oxycodone 5 mg Q6 prnWound Site: sacrum wet a Kerlix roll and pack into the cavity: the wound travels upwards please ensure the cavity is packed every 12 hours Yeslidocai ne 2% gel to coccyx daily except sun and sunday. Type 2 mary betes mellitus 55007965 E11.9 continue:l antus 15 units qdlispro SSC TIDmonitor BS TID and HS and adjust insulin prn Essential hypertension 56969637 I10 continue:l osartan 50mg qdmonitor for clinical sx changesmon itor bp and adjust med prn Insomnia 492429857 G47.0 0 continue 3 mg daily at hs Gastroesop hageal reflux disease 513537300 K21.9 continue omeprazole 20 mg dailyzofra n 4mg daily prn Q4 Self-neglect 118167108 R 46.89 on 05/02 after being found awake, alert on the floor covered in urine and feces by animal control while there were trying to return her cat. patient very deconditio elian wanting to be discharge to homePT/OT eval and txHx of self neglect.ps ych eval and tx Urinary tr act infectious disease 15222300 N39.0 UTI vs bacteriuri amonitor for urinary sx Ulcer 725204436 L98.9 hx of PVDuncontr olled diabetesch ronic right great toe. [id number] Katt Fernando MD [address] [address] 07/09/2023 13:50:58 07/11/2023 10:09:59 Pressure injury 4978926469 L89.150 Descriptio n of wound per nursing: s uperior wound 2.2x2 (presents with slough, surroundin g wound clustered measuremen t 4x3cm) tunnels into the inferior larger stg 4 wound. noted intact skin in between the two wounds. larger wound measuring 9.5x7x5; underminin g from 11 o'clock (2 cm), 12 o'clock (5cm), 1 o'clock (6cm), in between 1 and 3 o'clock there is a noted 2 cm internal separate tunnel, 3 o'clock (10cm), in between 3 and 6 o'clock there is a noted 2cm tunnel, 4 o'clock (10cm), 5 o'clock (7-8cm), 6 o'clock (4cm),betw een 6 and 7 o'clock (1.5cm), 7 o'clock (0.5cm)dep th of the wound varies; on the right aspect of the wound ; depth reaches 6.25cm. on the left aspect of the wound; depth reaches 8cm. Compl eted Bactrim DS BID on 07/05Contin ue oxycodone 5 mg q 6 hrs prn and APAP 650 mg q 4 hrs prn.Local wound care as ordered, to be seen by wound care MD tomorrow. Type 2 mary betes mellitus 77376965 E11.9 Sugars pretty good since here, one high reading.Hg A1C was 8.9 in ont inue metformin 1000 mg BID, lantus 15U qd, and SSI.Finger sticks being checked BID, will change to TID.Adjust meds prn. Essential hypertension 60364755 I10 BP running low since here.For now will continue losartan 50 mg qdConsider lowering dose if BP remains low. Insomnia 043332997 G47.0 0 Continue melatonin 3 mg qhsMonitor sleep patterns. Gastroesop hageal reflux disease 259367131 K21.9 Continue omeprazole 20 mg qd and zofran 4 mg q 4 hrs prnMonitor GI sxs. Self-neglect 347309690 R 46.89 Apparently with poor self care at home, Urine and feces found all over home.Needs elder protective involved at time of d/cPsych consult Urinary tr act infectious disease 89559663 N30.80 50-100,000 e. coli on last urine cx.Covered by Bactrim which she was on for ulcers.Mon itor for sxs. Ulcer 017753258 L98.9 Chronic right great toe.Contin ue local care as ordered.Wo und care to see her in AM. Asthenia [id number] R53.1 Very deconditio elian.Needs PT/OT for strengthen ing, balance, gait training, safety and function.C ontinue fall precaution s.Monitor for safety. History of osteomyelitis 718570932 Z87.39 Hx of in 2022No evidence on this admission. Monitor Diabetic foot ulcer [id number] 97071 E13.621 Chronic right great toe.Comple jensen Bactrim DS BID on 07/05Contin ue oxycodone 5 mg q 6 hrs prn and APAP 650 mg q 4 hrs prn.Local wound care as ordered, to be seen by wound care MD tomorrow. [id number] FRANTZ GUIDRY [address] [address] 07/12/2023 17:02:21 07/16/2023 13:06:51 Pressure injury [id number] L89.90 decubitus ulcer on sacrum unstageabl econtinue oxycodone 5 mg Q6 prn5/14: SACRUM : cleanse with NS, pack with rope Alginate , apply gauze in the wound cavity, apply superabsor bent coccyx boarder foam dressing BID and PRNlidocai ne 2% gel to coccyx daily except sun and sunday. Type 2 mary betes mellitus 16620449 E11.9 mainly under 200continu e:lantus 15 units qdlispro SSC TIDmonitor BS TID and HS and adjust insulin prn Essential hypertension 73844762 I10 continue:l osartan 50mg qdmonitor for clinical sx changesmon itor bp and adjust med prn [id number] FRANTZ GUIDRY [address] [address] 07/17/2023 10:38:34 07/19/2023 16:10:08 Pressure injury [id number] L89.90 decubitus ulcer on sacrum unstageabl econtinue oxycodone 5 mg Q6 prn5/14: SACRUM : cleanse with NS, pack with rope Alginate , apply gauze in the wound cavity, apply superabsor bent coccyx boarder foam dressing BID and PRNlidocai ne 2% gel to coccyx daily except sun and sunday. Type 2 mary betes mellitus 90941127 E11.9 mainly under 200continu e:lantus 15 units qdlispro SSC TIDmonitor BS TID and HS and adjust insulin prn Essential hypertension 11304099 I10 continue:l osartan 50mg qdmonitor for clinical sx changesmon itor bp and adjust med prn Major depr essive disorder 004678495 F32.9 see hpinoted with agitation and anxietywit h start trazodone 12.5 mg Q8 prn , nursing encouraged to utilized and document effects. [id number] FRANTZ GUIDRY [address] [address] 07/19/2023 09:57:12 07/31/2023 10:45:17 Pressure injury 3361200033 L89.90 decubitus ulcer on sacrum unstageabl econtinue oxycodone 5 mg Q6 prn5/14: SACRUM : cleanse with NS, pack with rope Alginate , apply gauze in the wound cavity, apply superabsor bent coccyx boarder foam dressing BID and PRNlidocai ne 2% gel to coccyx daily except sun and sunday. Type 2 mary betes mellitus 28425682 E11.9 mainly under 200continu e:lantus 15 units qdlispro SSC TIDmonitor BS TID and HS and adjust insulin prn Essential hypertension 21813470 I10 continue:l osartan 50mg qdmonitor for clinical sx changesmon itor bp and adjust med prn Major depr essive disorder 631688640 F32.9 see hpinoted with agitation and anxietywit h start trazodone 12.5 mg Q8 prn , nursing encouraged to utilized and document effects. [id number] FRANTZ GUIDRY [address] [address] 07/25/2023 15:29:55 07/31/2023 11:48:59 Pressure injury 0718064883 L89.90 decubitus ulcer on sacrum unstageabl econtinue oxycodone 5 mg Q6 prn5/14: SACRUM : cleanse with NS, pack with rope Alginate , apply gauze in the wound cavity, apply superabsor bent coccyx boarder foam dressing BID and PRNlidocai ne 2% gel to coccyx daily except sun and sunday. Type 2 mary betes mellitus 01203383 E11.9 mainly under 200continu e:lantus 15 units qdlispro SSC TIDmonitor BS TID and HS and adjust insulin prn Essential hypertension 22343401 I10 continue:l osartan 50mg qdmonitor for clinical sx changesmon itor bp and adjust med prn Major depr essive disorder 293052380 F32.9 see hpinoted with agitation and anxietywit h start trazodone 12.5 mg Q8 prn , nursing encouraged to utilized and document effects. Delusion 4962381 F22 see hpiorder was placed for patient to be seen by psych slum score 22 - eval completed by Michael invoke- form sent to office and signed and returned via faxed.psyc h eval was ordered not sure why she was not seen, she was registered will [id number] FRANTZ GUIDRY KEVIN [address] [place] [address] [place] [address] 07/27/2023 10:19:26 07/31/2023 12:30:44 Pressure injury [id number] L89.90 decubitus ulcer on sacrum unstageabl eSACRUM : cleanse with NS, pack with rope Alginate , apply gauze in the wound cavity, apply superabsor bent coccyx boarder foam dressing BID and PRNlidocai ne 2% gel to coccyx daily except sun and sunday.con tinue oxycodone 5 mg Q6 prn Type 2 mary betes mellitus 79852496 E11.9 mainly under 200continu e:lantus 15 units qdlispro SSC TIDmonitor BS TID and HS and adjust insulin prn Essential hypertension 71933476 I10 continue:l osartan 50mg qdmonitor for clinical sx changesmon itor bp and adjust med prn Major depr essive disorder 815923343 F32.9 Trazodone ordered, nursing used 3 timesnursi ng encouraged to use and document behaviors, pt has been invoked.tr azodone 12.5 mg BID Delusion 2818414 F22 order was placed for patient to be seen by psych slum score 22 - eval completed by Michael invoke- form sent to office and signed and returned via faxed.psyc h eval was ordered not sure why she was not seen, she was registered will HDtrazodon e prn ordered, will schedule to see if behaviors improve. [id number] FRANTZ GUIDRY [address] [place] [address] 07/30/2023 12:35:12 08/06/2023 15:33:13 Pressure injury 9240639399 L89.90 decubitus ulcer on sacrum unstageabl eSACRUM : cleanse with NS, pack with rope Alginate , apply gauze in the wound cavity, apply superabsor bent coccyx boarder foam dressing BID and PRNlidocai ne 2% gel to coccyx daily except sun and sunday.con tinue oxycodone 5 mg Q6 prn Type 2 mary betes mellitus 80408841 E11.9 continue:l antus 15 units qdlispro SSC TIDmonitor BS TID and HS and adjust insulin prn Essential hypertension 04155904 I10 BP has been stable.con tinue:losa rtan 50mg qdmonitor for clinical sx changesmon itor bp and adjust med prn Major depr essive disorder 883442304 F32.9 Trazodone ordered, nursing used 3 timesnursi ng encouraged to use and document behaviors, pt has been invoked.tr azodone 12.5 mg BID - . nursing reports disruptive behaviors. forgot to schedule medication . will start trazodone 25 mg schedule for this evening Delusion [id number] F22 order was placed for patient to be seen by psych marbellaum score 22 - eval completed by Michael invoke- form sent to office and signed and returned via faxed.psyc h eval was ordered not sure why she was not seen, she was registered will HDtrazodon e prn ordered, will schedule trazodone 25 mg at hs to see if behaviors improve. [id number] FRANTZ GUIDRY DANNY BROWN [address] [place] [address] [place] [address] 08/01/2023 09:42:38 08/06/2023 16:24:53 Pressure injury 5575834562 L89.90 07/30 seen by wound MD, continue with current tx ordered. decubitus ulcer on sacrum unstageabl eSACRUM : cleanse with NS, pack with rope Alginate , apply gauze in the wound cavity, apply superabsor bent coccyx boarder foam dressing BID and PRNlidocai ne 2% gel to coccyx daily except sat and sunday.con tinue oxycodone 5 mg Q6 prn Type 2 mary betes mellitus 13402452 E11.9 Her BGL have all been mainly 150s.natividad nue:lantus 15 units qdlispro SSC TIDmonitor BS TID and HS and adjust insulin prn Essential hypertension 42414073 I10 Her BP has been stable SBP high 90-110scon tinue:losa rtan 50mg qdmonitor for clinical sx changesmon itor bp and adjust med prn Major depr essive disorder 898274388 F32.9 nursing reports she continues to have agitation with disruptive behaviors, trazodone was ordered for Hs and has been effective. will continue trazodone 25 mg schedule for this evening Delusion [id number] F22 order was placed for patient to be seen by psych - she has not yet been evaluated, nursing asked to ensure HD is updated that she needs to be seen. she in invoked. slum score 22continue trazodone as ordered, Loose stool 726685643 R1 9.5 reportedly having loose stool on 07/25- nursing concerns for cdiff d/t abx usesample negative for cdiffthere has been no reports loose stools since 07/26/23. [id number] FRANTZ GUIDRY [address] [place] [address] 08/06/2023 09:01:31 08/13/2023 13:28:46 Pressure injury 4896311563 L89.90 followed by wound, no new orders, nursing reports wound is w/o s/sx of infection. decubitus ulcer on sacrum unstageabl eSACRUM : cleanse with NS, pack with rope Alginate , apply gauze in the wound cavity, apply superabsor bent coccyx boarder foam dressing BID and PRNlidocai ne 2% gel to coccyx daily except sat and sunday.con tinue oxycodone 5 mg Q6 prn Type 2 mary betes mellitus 51119825 E11.9 lantus 15 units qdlispro SSC TIDmonitor BS TID and HS and adjust insulin prn Essential hypertension 90930760 I10 Her BP has been stable SBP high 90-110scon tinue:losa rtan 50mg qdmonitor for clinical sx changesmon itor bp and adjust med prn Major depr essive disorder 556963443 F32.9 nursing reports that her behaviors and mood has improved but she does continue to have outburst.c ontinue trazodone 25 mg schedule for this eveningsta rt trazodone 25 mg QD and reval in 1 week Delusion [id number] F22 invokedcon tinue trazodone [id number] FRANTZ GUIDRY [address] [address] 08/09/2023 11:10:30 08/13/2023 13:49:17 Pressure injury 8606684895 L89.90 followed by wound, no new orders, nursing reports wound is w/o s/sx of infection. decubitus ulcer on sacrum unstageabl eSACRUM : cleanse with NS, pack with rope Alginate , apply gauze in the wound cavity, apply superabsor bent coccyx boarder foam dressing BID and PRNlidocai ne 2% gel to coccyx daily except sun and sunday.con tinue oxycodone 5 mg Q6 prn Type 2 mary betes mellitus 38870835 E11.9 lantus 15 units qdlispro SSC TIDmonitor BS TID and HS and adjust insulin prn Essential hypertension 73791342 I10 continue:l osartan 50mg qdmonitor for clinical sx changesmon itor bp and adjust med prn Major depr essive disorder 564323298 F32.9 continue trazodone 25 mg schedule for this eveningsta rt trazodone 25 mg QD and reval in 1 week Delusion F22 invokedcon tinue trazodone as above. [id number] FRANTZ GUIDRY [address] [address] 08/13/2023 11:46:24 08/15/2023 16:47:43 Pressure injury 3797912128 L89.90 followed by wound, no new orders, nursing reports wound is w/o s/sx of infection, getting smaller, min to moderate drainage.d ecubitus ulcer on sacrum unstageabl eSACRUM : cleanse with NS, pack with rope Alginate , apply gauze in the wound cavity, apply superabsor bent coccyx boarder foam dressing BID and PRNlidocai ne 2% gel to coccyx daily except sat and sunday.con tinue oxycodone 5 mg Q6 prn Type 2 mary betes mellitus 63320615 E11.9 lantus 15 units qdlispro SSC TIDmonitor BS TID and HS and adjust insulin prn Essential hypertension 99240737 I10 continue:l osartan 50mg qdmonitor for clinical sx changesmon itor bp and adjust med prn Major depr essive disorder 518522745 F32.9 continue trazodone 25 mg schedule for this eveningcon tinue trazodone 25 mg QD it seems to be effective per nursing decrease behaviors, Delusion 7310680 F22 invokedcon tinue trazodone as above. [id number] FRANTZ GUIDRY [address] [address] 08/16/2023 09:08:44 08/22/2023 10:40:33 Pressure injury 5458908811 L89.90 continue wound tx as ordered.de cubitus ulcer on sacrum unstageabl eSACRUM : cleanse with NS, pack with rope Alginate , apply gauze in the wound cavity, apply superabsor bent coccyx boarder foam dressing BID and PRNlidocai ne 2% gel to coccyx daily except sun and sunday.con tinue oxycodone 5 mg Q6 prn Type 2 mary betes mellitus 25795908 E11.9 bgl are stable under 150'slantu s 15 units qdlispro SSC TIDmonitor BS TID and HS and adjust insulin prn Essential hypertension 16869771 I10 continue:l osartan 50mg qdmonitor for clinical sx changesmon itor bp and adjust med prn Major depr essive disorder 695699664 F32.9 continue trazodone 25 mg schedule for this eveningcon tinue trazodone 25 mg QD it seems to be effective per nursing decrease behaviors, Delusion 0581096 F22 invokedcon tinue trazodone as above. [id number] [facility]att [facility] [address] [place] [phone] 08/20/2023 16:08:21 09/18/2023 07:26:47 Pressure injury 9989418406 L89.150 Continue local care as ordered and pain control with lidocaine 2% gel to coccyx daily except sun and sunday and oxycodone 5 mg q 6 hrs prn.Follow ed by wound care.Monit or for healing. Type 2 mary betes mellitus 16452271 E11.9 In good control the last few wks.Contin ue lantus 15 units qd and SSIMonitor fingerstic ks TID and HgA1C q 3 months. Essential hypertension 57450155 I10 Remains in good control.Co ntinue losartan 50 mg qdMonitor BP and labs. Major depr essive disorder 960109924 F32.89 continue trazodone 25 mg schedule for this eveningcon tinue trazodone 25 mg QD it seems to be effective per nursing decrease behaviors, Delusion 7445328 F22 Variably oriented and very confused.S cored on SLUMsConti nue supportive care, expect decline.HC P invokedMon itor mood and behaviors. Psych consult for further advice. [id number] FRANTZ GUIDRY [facility] [address] [place] [address] 08/28/2023 11:24:50 09/18/2023 07:44:16 Pressure injury 8007867255 L89.90 continue wound tx as ordered.de cubitus ulcer on sacrum unstageabl eSACRUM : cleanse with NS, pack with rope Alginate , apply gauze in the wound cavity, apply superabsor bent coccyx boarder foam dressing BID and PRNlidocai ne 2% gel to coccyx daily except sun and sunday.con tinue oxycodone 5 mg Q6 prn Type 2 mary betes mellitus 75004936 E11.9 lantus 15 units qdlispro SSC TIDmonitor BS TID and HS and adjust insulin prn Essential hypertension 65347618 I10 continue:l osartan 50mg qdmonitor for clinical sx changesmon itor bp and adjust med prn Major depr essive disorder 854697400 F32.9 continue trazodone 25 mg BIDstart duloxetine 20 mg daily, for 7 days then increase to 20 mg bid; diagnosis depression will check labs as recommende d thyroid labs, B12 and vitamin D levels Delusion 9946358 F2 invoked [id number] Katt Fernando MD [address] [place] [address] 09/03/2023 18:29:05 09/18/2023 08:04:07 Diabetic foot ulcer 907190975 E13.621 Chronic right great toe.Comple jensen Bactrim DS BID on 5/10Contin ue oxycodone 5 mg q 6 hrs prn and APAP 650 mg q 4 hrs prn.Contin ue local wound care as ordered.Wo und care MD follows. Pressure injury 68786958 07 L89.150 Continues to improve.Co mpleted Bactrim DS BID on 5/10Contin ue oxycodone 5 mg q 6 hrs prn and APAP 650 mg q 4 hrs prn.Local wound care as ordered.Wo und care MD follows. Asthenia 38924701 R53.1 Continues to be deconditio elian.Needs PT/OT for strengthen ing, balance, gait training, safety and function, but refuses.Co ntinue fall precaution s.Monitor for safety. Type 2 mary betes mellitus 60054150 E11.9 Sugars in excellent control over past month.HgA1 C was 8.9 in ont inue metformin 1000 mg BID, lantus 15U qd, and SSI.Monito r fingerstic ks TID and HgA1C q 3 months.Adj ust meds prn. Essential hypertension 00854260 I10 BP still running on the low side, but no sxs.Contin ue losartan 50 mg qdConsider lowering dose if BP remains low. Insomnia 923711975 G47.0 0 Continue melatonin 3 mg qhsMonitor sleep patterns. Gastroesop hageal reflux disease 560533908 K21.9 Continue omeprazole 20 mg qd and zofran 4 mg q 4 hrs prnMonitor GI sxs. Self-neglect 340781012 R 46.89 With poor self care at home, Urine and feces found all over home.Elder protective is involved.U nclear what jail plan is.Psych following. Urinary tr act infectious disease 16072125 N30.80 ResolvedMo nitor for recurrent sxs. History of osteomyelitis 613279956 Z87.39 Hx of in 2022No evidence on this admission. Monitor Major depr essive disorder 444915394 F32.89 Mood ok today.Cont inue trazodone 25 mg BID and duloxetine 20 mg qd until 09/04 then increase to 20 mg BID.Monito r thyroid labs, B12 and vitamin D levels Delusion 0499606 F22 Remains confused and with delusions. Unclear if psych dx or dementia.C ontinue supportive care.HCP invokedMon itor mood and behaviors. Psych follows. Health Concerns Section Related Observation LastModified by Organization Detai ls LastModified Time None Recorded Concern Status LastModified by Organization Details LastModified Time None Recorded Advance Directives Directive Y: Payers Insurance Date Sequence Insurance Name Policy Number Policy Vogel Covered Member ID Vogel Member ID Guarantor Name 09/18/2023 2 [facility] [id number] 1 Kasey Wright [id number] Kasey Wright 08/28/2023 1 [place]IC[place]: [employer] Kasey Wright [id number] Kasey Wright Notes Date Note Type Note Provider Name and Address Organization Details Recorded Time 08/13/2023 text/html ROS as noted in the HPI This is a 72-year-old female with history of depression, prior self-neglect, type II DM, CKD stage III. Patient admitted to for rehab after acute care stay for management of ? of Sepsis, decubitus ulcers,Toe wound and UTI. Patient is seen today for acute rounding visit.nursing reports she refused OOB for 1 week but tells me that she gets up by herself daily. There is improvement with behaviors. FRANTZ GUIDRY [address] [facility], [address], [place], [address], [facility] 08/13/2023 13:52:24 08/16/2023 text/html ROS as noted in the HPI This is a 72-year-old female with history of depression, prior self-neglect, type II DM, CKD stage III. Patient admitted to for rehab after acute care stay for management of ? of Sepsis, decubitus ulcers,Toe wound and UTI. Patient is seen today for acute rounding visit. FRANTZ GUIDRY [address] , [address], [place], [address], [place] [facility] 08/16/2023 11:24:13 08/20/2023 text/html I am seeing this 72 yo woman for an acute visit to f/u on ulcers DM and HTN.She has been here since 07/03 and has been d/c'd from rehab services.She continues to have a large sacral ulcer and is followed by wound care. She has a hx of self neglect, but is still her own person, CONSUMER STUDIES PROFESSOR note says she's invoked, but I don't see that in the record. Tonight she is asleep, but wakes easily and tells me she's fine. She tells me her butt is much better, but her arms hurt.She tells me she plans to go home and that she lives with her parents, that her mom is 91 yo.Her PMH includes HTN, AODM, GERD, CKD stage 3, self neglect, CKD stage 2, UTIs, CHF pEF, depression, sacral ulcer, and hx of diabetic foot ulcer with osteomyelitis. Katt Fernando MD [address] [facility], [facility], [place], [address], [facility] 09/15/2023 18:50:20 08/28/2023 text/html This is a 72 yo woman seen today for an acute visit. Patient admitted to for rehab after acute care stay for management of ? of Sepsis, decubitus ulcers,Toe wound and UTI. On exam she is lying in bed, she tells me that she feels better than she has in a long time. She was seen by wound MD today and states that she happy to know her wound is getting smaller. nursing reports decreased agitation, reports behaviors have improved. she was seen by psychiatric aide instructor on 08/19 for management of medication and behavior. Her PMH includes HTN, AODM, GERD, CKD stage 3, self neglect, CKD stage 2, UTIs, CHF pEF, depression, sacral ulcer, and hx of diabetic foot ulcer with osteomyelitis. FRANTZ GUIRDY [address] [facility], [address], [place], [address], [facility] [employer] 08/28/2023 16:16:18 09/03/2023 text/html This is a 72 yo woman who I am seeing today for a routine MD 60 day reeval rounding visit.She has been here since 07/03 after an acute hospitalization for MSSA sepsis, large sacral decub, UTI and AMS. Since here her wound has been managed by wound care and nursing, with some improvement.Her home was reportedly covered with urine and feces (human and animal?) and very cluttered. It has since been condemned. She is no longer being seen by rehab due to frequent refusals. She has had some issues with delusions and has been followed by psych.Last visit on 08/19 and recommended duloxetine to be started at 20 mg daily and then increased to BID after 1 wk. This was started on 08/28.She is also getting trazadone for anxiety. Today she tells me her only problem is the hole in my butt . But she is glad that it is apparently improving.She says it causes her no pain.She again tells me she lives with her parents who are 93 and 95, but then proceeds to tell me about when her father and her mother was in a fpc for 3 yrs and then .Her PMH includes HTN, AODM, GERD, CKD stage 3, self neglect, CKD stage 2, UTIs, CHF pEF, depression, sacral ulcer, and hx of diabetic foot ulcer with osteomyelitis. Katt Fernando MD [address] [facility], [address], [place], [address], [facility] [employer] 09/07/2023 10:26:12 OBGyn Episode No OBEpisode recorded.
--- OUTSIDE RECORDS SUMMARY | 2025-02-24 18:56 | XMS_ITS | Clinical Summary ---
Author Organization [facility] Address [address] [place] [address] Care Team Providers Care Quality Review Trainer Name Role Phone Mao Arreguin III Primary Care Provider [phone] Allergies Active Allergy Reactions Criticality Noted Date [...] 99 05/02/2023 9:44 AM EST Temperature 36.7 C (98.1 F) 05/01/2023 7:38 PM EST Respiratory Rate 18 05/02/2023 9:44 AM EST Oxygen Saturation 94% 05/02/2023 9:44 AM EST Inhaled Oxygen Concentration - - Weight 72.6 kg (160 lb) 05/01/2023 7:38 PM EST Height 160 cm (5' 3 ) 05/01/2023 7:38 PM EST Body Mass Index 28.34 05/01/2023 7:38 PM EST Plan of Treatment Health Maintenance Due Date Last Done Comments Cologuard 1950 Colon Cancer Screening 1950 Colonoscopy 1950 FOBT / Fit Test 1950 Hepatitis C Screening 1950 Sigmoidoscopy 1950 Medicare AWV 1951 DTaP,Tdap,and Td Vaccines (1 - Tdap) 11/17/1971 CT Lung Cancer Screening (Baseline) 11/17/1999 Osteoporosis Screening 11/17/1999 Pneumococcal Vaccine: 50+ Ye ars (1 of 1 - PCV) 11/17/1999 Zoster Vaccines (1 of 2) 11/17/1999 Alcohol/Substance Use Screening 02/27/2024 Depression Screening and Follow-Up 02/27/2024 Fall Risk Screening 02/27/2024 Health Care Proxy Review 02/27/2024 Social Drivers of Health Lisa ual Screening 02/27/2024 Influenza Vaccine (#1) 2024 COVID-19 Vaccine (1 - 2024-2 6 season) 2024 RSV Vaccine (60+ years old a nd patients) (1 - 1-dose 75+ series) 2024 Hepatitis B Vaccines Aged Out No long er eligible based on patient's age to complete this topic Insurance MEDICARE [facility] Care Teams Quality Review Trainer Relationship Specialty Start Date End Date Mao Arreguin III [address] [facility] [address] [place], [place] [id number] PCP - General Family Medicine 05/02/23
[2025-02-25 09:33] LABS: Chlamydia pneumoniae PCR Not Detected (Not Detect.); Coronavirus 229E PCR Not Detected (Not Detect.); Coronavirus HKU1 PCR Not Detected (Not Detect.); Coronavirus NL63 PCR Not Detected (Not Detect.); Coronavirus OC43 PCR Not Detected (Not Detect.); Influenza A H3 PCR Detected (Not Detect.); RSV PCR Not Detected (Not Detect.); Rhino/Enterovirus PCR Not Detected (Not Detect.); SARS-CoV-2 PCR Not Detected (Not Detect.)
[2025-02-25 09:52] LABS: Influenza A H1 PCR Not Detected (Not Detect.); Influenza A H1-2009 PCR Not Detected (Not Detect.)
== END 2025-02-24 15:48 | disposition home or self-care (01) ==
LOC: HO.MMNH3L 15:47
PROVIDERS: Visit Provider Student in an Organized Health Care Education/Training Program
DX: E11.22 Type 2 diabetes mellitus with diabetic chronic kidney disease (principal); E11.51 Type 2 diabetes mellitus with diabetic peripheral angiopathy without gangrene; I50.30 Unspecified diastolic (congestive) heart failure
CPT/HCPCS: 87633